=== PATIENT | female | born 1990 | race Caucasian/White ===

== ENCOUNTER 2020-10-22 07:05 | Day surgery (SDC) | payer MEDICAID, SELFPAY ==
[~2020-10-22] VITALS: Ht 154.9 cm; Wt 79.8 kg
[2020-10-22 07:54] LABS: HCG,QUAL RESULT NEGATIVE (NEGATIVE)
[2020-10-22] MEDS: MEPERIDINE 100 MG INJ. 100 MG/ML VIAL ONE ×2 (08:45→08:58)
[2020-10-22] MEDS: MIDAZOLAM HCL 5 MG/5 ML VIAL ONE ×4 (08:45→08:54)
[2020-10-22] MEDS ORDERED: DIPHENHYDRAMINE INJ 50 MG/ML VIAL ONE (08:49)
[2020-10-22] MEDS ORDERED: MIDAZOLAM HCL 5 MG/5 ML VIAL ONE (08:58)
[2020-10-22 14:04] VITALS: BP_SYST 102
== END 2020-10-22 10:20 | disposition home or self-care (01) ==
LOC: SDS 07:05 → SMU 07:09 → SDS 10:20
PROVIDERS: ATTEND Internal Medicine Gastroenterology
DX: K62.5 Hemorrhage of anus and rectum (principal); K51.30 Ulcerative (chronic) rectosigmoiditis without complications; K52.9 Noninfective gastroenteritis and colitis, unspecified; Z80.0 Family history of malignant neoplasm of digestive organs; Z79.899 Other long term (current) drug therapy; Z20.822 Contact with and (suspected) exposure to COVID-19
CPT/HCPCS: 45380; 84703; 87045-TC; 87177; 87230-TC; 88305; 89055; J1200; J2175; J2250; U0003